=== PATIENT | female | born 1935 | race Caucasian/White ===

== ENCOUNTER 2021-05-19 17:04 | Emergency (ER) | payer OTHER ==
[~2021-05-19] VITALS: Ht 157.5 cm; Wt 68.9 kg
[~2021-05-19 17:04] MED LIST: ASPIRIN81 M1; BICARSIM80 MG PO; CIPRO500 MG PO; IMODIUM A-D2 MG PO; LEVSIN/SL0.125 MG PO; LEVSIN/SL0.125 MG SL; LOSARTAN-HCTZ1 EAC2; METFORMIN HCL500 MG; METFORMIN HCL850 MG; PROBIOTIC1 EAC2 PO; PROTONIX40 MG PO
[2021-05-19] MEDS ORDERED: BUSPIRONE HCL5 GM (17:27)
[2021-05-19] MEDS ORDERED: PANTOPRAZOLE SO40 MG (17:27)
[2021-05-19] MEDS ORDERED: WELLBUTRIN XL150 M1 (17:29)
== END 2021-05-19 19:14 | disposition home or self-care (01) ==
LOC: ER 17:04
DX: M79.651 Pain in right thigh (principal)

== ENCOUNTER 2025-01-25 15:35 | Emergency (ER) | payer OTHER ==
[~2025-01-25] VITALS: Ht 162.6 cm; Wt 73.5 kg
[~2025-01-25 15:35] MED LIST changes: +BUSPIRONE HCL5 GM; +PANTOPRAZOLE SO40 MG; +WELLBUTRIN XL150 M1
[2025-01-25] MEDS ORDERED: TIROSINT13 MCG (15:56)
[2025-01-25] MEDS ORDERED: CETIRIZINE HCL 5MG/5ML BLIST.PACK PO ONE (16:27)
[2025-01-25] MEDS ORDERED: HYOSCYAMINE SULFATE 0.125 MG TAB.SUBL ONE (16:27)
[2025-01-25] MEDS ORDERED: ONDANSETRON HCL 2 MG/ML VIAL ONE (16:27)
[2025-01-25] MEDS ORDERED: FAMOTIDINE/PF 20 MG/2 ML VIAL ONE (16:28)
[2025-01-25] MEDS ORDERED: CETIRIZINE HCL 5 MG/5 ML ML PO ONE (16:30)
[2025-01-25] MEDS ORDERED: HYOSCYAMINE SULFATE 0.125 MG TAB.SUBL SL ONE (16:30)
[2025-01-25] MEDS ORDERED: FAMOtidine 10 MG/ML (4ML VIAL) IV ONE (16:30)
[2025-01-25] MEDS ORDERED: ONDANSETRON HCL 2 MG/ML VIAL IV ONE (16:30)
[2025-01-25 17:26] LABS: HEMATOCRIT 38.6 % (36.0-45.00); MEAN CELL VOLUME 86.4 fL (80.00-100.00); MEAN CORPUSCULAR HEMOGLOBIN 29.2 pg (27.00-32.0); MEAN CORPUSCULAR HGB CONC 33.8 g/dl (32.0-36.0); PLATELET COUNT 205 K/uL (150-450); RED BLOOD COUNT 4.47 M/uL (4.00-6.00); RED CELL DISTRIBUTION WIDTH 14.6 % (11.5-14.5)
[2025-01-25 17:44] LABS: ALBUMIN 3.6 gm/dL (3.4-5.0); BILIRUBIN TOTAL 0.39 mg/dL (0.3-1.2); CALCIUM 9.5 mg/dL (8.5-10.1); CREATININE SERUM 0.86 mg/dL (0.55-1.02); GFR 62.27; GLOBULINA 4.3 G/DL (2.4-3.5); POTASSIUM 4.27 mEq/L (3.5-5.1); TOTAL PROTEIN 7.9 gm/dL (6.4-8.2)
[2025-01-25 17:50] LABS: URINE APPEARANCE Clear; URINE BILIRRUBIN Negative (NEGATIVE); URINE BLOOD Small; URINE COLOR Yellow; URINE GLUCOSE Negative (NEGATIVE); URINE KETONE Negative (NEGATIVE); URINE LEUKOCYTE Small; URINE NITRATE Negative; URINE PROTEIN Trace (NEGATIVE); URINE UROBILINOGEN 0.2 E.U./dl
[2025-01-25 17:52] LABS: COVID-19 AG NEGATIVE (NEGATIVE)
[2025-01-25 17:54] LABS: URINE BACTERIA 261.8 uL (0.0-1933); URINE EPITHELIAL CELLS 6.4 uL (0.0-38.8); URINE WBC 61.5 uL (0.0-23.2)
[2025-01-25 17:57] LABS: URINE CAST 0.29 uL (0.0-1.40)
[2025-01-25 17:59] LABS: INFLUENZA A AG NEGATIVE (NEGATIVE)
[2025-01-25] MEDS ORDERED: PEPCID AC20 MG PO (18:14)
[2025-01-25] MEDS ORDERED: ZOFRAN8 MG PO (18:14)
[2025-01-25] MEDS ORDERED: BACTRIM DS TAB1 EACH PO (18:14)
== END 2025-01-25 18:23 | disposition home or self-care (01) ==
LOC: ER 15:35
PROVIDERS: General Practice
DX: J00 Acute nasopharyngitis [common cold] (principal); R11.2 Nausea with vomiting, unspecified; R09.81 Nasal congestion; Z91.013 Allergy to seafood; Z20.822 Contact with and (suspected) exposure to COVID-19
CPT/HCPCS: 36415; 96365; 99282; J2405; J3490